=== PATIENT | male | born 1950 | race Caucasian/White ===

== ENCOUNTER → 2016-12-18 | Outpatient (CLI) | payer MEDICARE ==
--- NOTE | 2016-12-18 23:23 | MR ---
EXAMINATION TYPE: MR ankle LT wo con DATE OF EXAM: 12/18/2016 2:14 PM COMPARISON: NONE HISTORY: Left ankle pain Standard multiplanar, multisequence MRI departmental protocol Multiplanar, multisequence images of the left ankle were acquired. FINDINGS: Ankle mortise is anatomic. I see no fracture. There is mild narrowing of the ankle joint sp trang. There is subcutaneous edema around the ankle joint. Achilles tendon is intact. Plantar fascia is intact. The medial and lateral flexor tendons of the ankle appear intact. There is mild increased si gnal in the inferior aspect of the anterior talus at the talonavicular joint inferiorly. The collater al ligaments appear intact. IMPRESSION: Subcutaneous edema. 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 No fracture. There is abilio dence of mild edema in the inferior talus at the talonavicular joint that could be stress related phe nomenon or osteoarthritis. No evidence of ligament or tendon tear.
== END ==
LOC: RADMRIMAIN 13:05
PROVIDERS: ATTEND Orthopaedic Surgery
DX: M19.072 Primary osteoarthritis, left ankle and foot (principal); M25.472 Effusion, left ankle